=== PATIENT | male | born 1950 | race Caucasian/White ===

== ENCOUNTER 2018-12-13 15:00 | Inpatient (IN) | payer MEDICARE, OTHER ==
[2018-12-13 16:22] LABS: Hemoglobin 14.9 g/dL (14.0-18.0); Mean Corpuscular HGB CONC 33.1 g/dL (32.0-36.0); Mean Corpuscular Hemoglobin 29.9 pg (27.0-31.0); Mean Corpuscular Volume 90.3 fL (78.0-98.0); Mean Platelet Volume 9.6 fL (7.4-10.4); Platelet Count 214 thou/uL (130-400); RBC Distribution Width 12.6 % (11.5-14.5); Red Blood Cell (RBC) Count 4.99 mill/uL (4.70-6.10); White Blood Cell (WBC) Count 7.7 thou/uL (4.8-10.8)
[2018-12-13 16:39] LABS: Anion Gap 12 mmol/L (10-20); BUN (Urea Nitrogen) 18 mg/dL (8.4-25.7); Calc. Creatinine Clearance 0 mL/min (70-130); Calcium 9.6 mg/dL (7.8-10.44); Carbon Dioxide 26 mmol/L (23-31); Chloride 108 mmol/L (98-107); Estimated GFR-MDRD 78; Glucose 79 mg/dL (80-115); Potassium 4.5 mmol/L (3.5-5.1); Sodium 141 mmol/L (136-145)
[2018-12-14] MEDS ORDERED: Midazolam HCl 5 mg/5 ml Vial ONE (06:33)
[2018-12-14] MEDS ORDERED: Fentanyl 250 MCG/5 ML VIAL ONE (06:33)
[2018-12-14] MEDS ORDERED: Heparin 10,000 UNITS/1 ML VIAL 30,000 UNITS in Sodium Chloride 0.9% 1,000 ML FS SCH (06:45)
[2018-12-14] MEDS ORDERED: Phenylephrine HCL 10 MG/ML VIAL ONE (07:05)
--- NOTE | 2018-12-14 10:46 | OP ---
DATE OF PROCEDURE: 12/14/2018 PREOPERATIVE DIAGNOSIS: Coronary artery disease. PROCEDURES PERFORMED: Coronary artery bypass graft x2, large left internal mammary artery to a 1 mm left anterior descending and a saphenous vein graft, good quality to a 1.25 mm diagonal. Neither of these targets would be considered a reoperative candidate. PROFESSOR OF CHEMICAL ENGINEERING: Ulices Rodarte MD TRANSFUSION: None. DESCRIPTION OF PROCEDURE: After adequate anesthesia had been obtained, the patient was prepped and draped and Dr. Rodarte harvested a segment of left greater saphenous vein while I performed a median sternotomy. Left internal mammary artery was harvested, patient heparinized, and mammary divided distally and treated with intraluminal papaverine. It was passed posterior to the thymus gland through an incision in the pericardium. After traction sutures were placed in the pericardium. Aorta and right atrium were cannulated. Cardiopulmonary bypass begun. Vessels were inspected for grafting and the LAD was intramyocardial except for its distal third. Aorta was cross clamped and after a liter of cold blood cardioplegia was given, the diagonal was opened and saphenous vein anastomosed to this small vessel. Following completion of this, the LAD was opened and it had to be dilated slightly to admit the 1 mm probe. CARBONE to LAD anastomosis was then carefully performed. Following which, the mammary pedicle was secured to the myocardium. The cross-clamp removed. The partial occluding clamp was then placed and a single proximal anastomosis was performed and marked with a ring. Following this, the patient was weaned from cardiopulmonary bypass. Due to a resting bradycardia with PVCs preoperatively, a set of temporary atrial wires were placed. Following protamine administration, cannulas were removed and secured. Mediastinal drains x2 were placed, following which the sternum was reapproximated with #7 interrupted wire. The vancomycin paste, platelet rich blood and platelet poor plasma were used to close the sternum and subcutaneous tissues over these. The patient is to be taken to the ICU in guarded condition. Job ID: [id number]
[2018-12-14] MEDS ORDERED: Morphine 4 MG/ML VIAL ONE (11:00)
[2018-12-14] MEDS ORDERED: Nitroglycerin 50 MG/250 ML BOT 250 ML ONE (11:04)
[2018-12-14] MEDS ORDERED: Hetastarch 6% 500 ML 500 ML IVPB PRN (11:29)
[2018-12-14] MEDS ORDERED: DOPamine 400 MG/D5W 250 ML 250 ML IVPB PRN (11:29)
[2018-12-14] MEDS ORDERED: Acetaminophen 325 MG TAB PO PRN (11:29)
[2018-12-14] MEDS ORDERED: niCARdipine HCl 25 MG in Sodium Chloride 0.9% 250 ML 240 ML IVPB PRN (11:29)
[2018-12-14] MEDS ORDERED: Morphine 2 MG/ML SYRINGE SLOW IVP PRN (11:29)
[2018-12-14] MEDS ORDERED: Promethazine HCl 25 MG/ML VIAL IM PRN (11:29)
[2018-12-14] MEDS ORDERED: Bisacodyl 10 MG SUPP PR PRN (11:29)
[2018-12-14] MEDS ORDERED: Potassium Chloride 20 MEQ/100 ML PREMIX BAG IVPB PRN (11:29)
[2018-12-14] MEDS ORDERED: Mag-Al 1200 mg/1200 mg/30 ML UDCUP PO PRN (11:29)
[2018-12-14] MEDS ORDERED: HYDROcodone/Acetaminophen 5/325 mg Tablet PO PRN ×2 (11:29)
[2018-12-14] MEDS ORDERED: Post-Op Insulin Drip Protocol IVPB ONE (11:29)
[2018-12-14] MEDS ORDERED: Norepinephrine 8 MG/0.9% NS 250 ML IVPB PRN (11:29)
[2018-12-14] MEDS ORDERED: Nitroglycerin 50 MG/250 ML BOT 250 ML IVPB PRN (11:29)
[2018-12-14] MEDS ORDERED: Fentanyl 100 MCG/2 ML VIAL SLOW IVP PRN (11:29)
[2018-12-14] MEDS ORDERED: Bisacodyl 5 MG TAB PO PRN (11:29)
[2018-12-14] MEDS ORDERED: hydrALAZINE 20 MG/ML VIAL SLOW IVP PRN (11:29)
[2018-12-14] MEDS ORDERED: Guaifenesin DM 100-10/5 ML UDCUP PO PRN (11:29)
--- NOTE | 2018-12-14 11:34 | RAD ---
Chest one view HISTORY: Heart surgery. COMPARISON: 09/26/2018. FINDINGS: Cardiac silhouette is magnified by projection. Pulmonary vasculature is unremarkable. Media stinum is midline with postoperative changes and aortic calcification. Radiopaque drains overlie the midline. Tip of endotracheal catheter overlies the thoracic inlet. Tip of a right subclavian cent ral venous catheter overlies the right atrium. No evidence of pneumothorax. Atelectasis at the left base. library monitor leads overlie the chest. IMPRESSION: Postoperative changes mediastinum. Lines and tubes are as detailed above.
[2018-12-14 11:39] LABS: Hemoglobin 12.7 g/dL (14.0-18.0); Mean Corpuscular HGB CONC 34.1 g/dL (32.0-36.0); Mean Corpuscular Hemoglobin 30.5 pg (27.0-31.0); Mean Corpuscular Volume 89.5 fL (78.0-98.0); RBC Distribution Width 12.5 % (11.5-14.5); Red Blood Cell (RBC) Count 4.16 mill/uL (4.70-6.10); White Blood Cell (WBC) Count 13.2 thou/uL (4.8-10.8)
[2018-12-14 11:40] LABS: Actual Bicarbonate (HCO3a) 22.5 mEq/L (22-28); CO2 Tension 41.6 mmHg (35.0-45.0); Calcium, Ionized 1.15 mmol/L (1.12-1.30); Carboxyhemoglobin (COHb) 0.9 gm% (0.0-3.0); Hemoglobin (Hb) 14.5 g/dL (14.0-18.0); O2 Tension (PaO2) 106.4 mmHg (> 80.0); Potassium - ABG Lab 4.12 mmol/L (3.70-5.30); Puncture Site ALINE; pH, Arterial 7.35 (7.35-7.45)
[2018-12-14 11:41] LABS: #Basophils 0.1 thou/uL (0.0-0.2); #Eosinphils 0.2 thou/uL (0.0-0.7); #Lymphocytes 1.5 thou/uL (1.20-3.40); #Monocytes 0.8 thou/uL (0.11-0.59); #Neutrophils 10.7 thou/uL (1.40-6.50); %Basophils 0.5 % (0.0-1.0); %Eosinophils 1.5 % (0.0-10.0); %Lymphocytes 11.1 % (21.0-51.0); %Monocytes 5.9 % (0.0-10.0); %Neutrophils 81.1 % (42.0-75.0)
[2018-12-14] MEDS ORDERED: Dextrose 50% Abboject 50 ML SYRINGE SLOW IVP PRN (11:55)
[2018-12-14] MEDS ORDERED: Insulin Regular 300 UNITS/3 ML VIAL SC PRN (11:55)
[2018-12-14] MEDS ORDERED: Dextrose 5% in Water 1,000 ML IV PRN (11:55)
[2018-12-14] MEDS ORDERED: HUMULIN R 100 UNITS in Sodium Chloride 0.9% 100 ML IVPB SCH (11:55)
[2018-12-14] MEDS ORDERED: Magnesium 2 GM/50 ML 2 GM in Premix Bag 1 BAG IVPB SCH (12:00)
[2018-12-14] MEDS: Ketorolac Tromethamine 30 MG/ML VIAL IVP SCH ×2 (12:05→17:51)
[2018-12-14] MEDS: Sodium Chloride 0.9% 1,000 ML IV SCH ×2 (12:06→21:08)
[2018-12-14 12:16] LABS: Mean Platelet Volume 10.6 fL (7.4-10.4); Platelet Count 145 thou/uL (130-400)
[2018-12-14 12:17] LABS: Platelet Morphology Comment Appears Adequate
[2018-12-14 12:26] LABS: INR-International Normal Ratio 1.2; PTT 25.1 SEC (22.9-36.1)
[2018-12-14 13:17] LABS: Anion Gap 12 mmol/L (10-20); Calcium 8.3 mg/dL (7.8-10.44); Carbon Dioxide 21 mmol/L (23-31); Chloride 111 mmol/L (98-107); Glucose 157 mg/dL (80-115); Potassium 4.4 mmol/L (3.5-5.1); Sodium 140 mmol/L (136-145)
[2018-12-14 13:26] LABS: Actual Bicarbonate (HCO3a) 18.3 mEq/L (22-28); Base Excess (BEa) -6.5 mEq/L (-2.0 to +3.0); CO2 Tension 34.5 mmHg (35.0-45.0); Calcium, Ionized 1.16 mmol/L (1.12-1.30); Carboxyhemoglobin (COHb) 1.2 gm% (0.0-3.0); Hemoglobin (Hb) 14.6 g/dL (14.0-18.0); O2 Tension (PaO2) 98.7 mmHg (> 80.0); Potassium - ABG Lab 4.15 mmol/L (3.70-5.30); pH, Arterial 7.34 (7.35-7.45)
[2018-12-14] MEDS: Fentanyl 100 MCG/2 ML VIAL SLOW IVP PRN ×3 (13:38→19:36)
[2018-12-14 13:51] LABS: ALV-art Gradient 143.375 (0-20); Puncture Site ALINE
[2018-12-14 14:24] LABS: Calc. Creatinine Clearance 96 mL/min (70-130); Estimated GFR-MDRD Greater than 90
[2018-12-14 14:25] LABS: BUN (Urea Nitrogen) 16 mg/dL (8.4-25.7)
[2018-12-14] MEDS ORDERED: Cardioplegic Soln 1,000 ML BAG ONE (15:15)
[2018-12-14] MEDS ORDERED: Protamine Sulfate 250 MG/25 ML VIAL ONE (15:15)
[2018-12-14] MEDS ORDERED: PHENYLEPHRINE-NS 100 MCG/ML 10 ML SYRINGE ONE (15:15)
[2018-12-14] MEDS ORDERED: Mannitol 12.5 GM/50 ML ONE (15:15)
[2018-12-14] MEDS ORDERED: Thrombin 5000 UNITS/5 ML VIAL ONE (15:15)
[2018-12-14] MEDS ORDERED: Magnesium 5 GM/10 ML VIAL ONE (15:15)
[2018-12-14] MEDS ORDERED: PROPOFOL 200 MG/20 ML VIAL ONE (15:15)
[2018-12-14] MEDS ORDERED: Rocuronium Bromide 10 MG/ML (10ML VIAL) ONE (15:15)
[2018-12-14] MEDS ORDERED: ePHEDrine 50 MG/ML VIAL ONE (15:15)
[2018-12-14] MEDS ORDERED: Heparin 30,000 units/30 ml VIAL ONE (15:15)
[2018-12-14] MEDS ORDERED: Potassium Chloride 60 MEQ/30 ML VIAL ONE (15:15)
[2018-12-14] MEDS ORDERED: Papaverine 60 MG/2 ML VIAL ONE (15:15)
[2018-12-14] MEDS ORDERED: Heparin 5,000 UNITS/ML VIAL ONE (15:15)
[2018-12-14] MEDS ORDERED: Aminocaproic Acid 5 GM/20 ML VIAL ONE (15:15)
[2018-12-14] MEDS ORDERED: Calcium Chloride 1 GM/10 ML Abboject SYRINGE ONE (15:15)
[2018-12-14] MEDS ORDERED: Lidocaine 2% PF 100 mg/5 ml Syringe ONE (15:15)
[2018-12-14] MEDS ORDERED: Glycopyrrolate 0.2 MG/ML 5 ML SYRINGE ONE (15:15)
[2018-12-14] MEDS ORDERED: Sodium Bicarb 50 MEQ/50 ML VIAL ONE (15:15)
[2018-12-14] MEDS: CEFAZOLIN 2 GM in Premix Bag 1 BAG IVPB SCH (15:52)
[2018-12-14] MEDS: Ondansetron PF 4 MG/2 ML Vial IVP PRN ×2 (16:37→22:40)
[2018-12-14 16:58] LABS: Hemoglobin 13.5 g/dL (14.0-18.0)
[2018-12-14 17:14] LABS: Potassium 4.1 mmol/L (3.5-5.1)
[2018-12-14] MEDS ORDERED: Prevnar 13-Val Conj/PF 0.5 ML SYRINGE IM ONE (21:00)
[2018-12-14] MEDS: Famotidine/PF 20 mg/2ml Vial SLOW IVP SCH (21:05)
[2018-12-14] MEDS: Atorvastatin Calcium 10 MG TAB PO SCH (21:05)
[2018-12-15] MEDS: Ketorolac Tromethamine 30 MG/ML VIAL IVP SCH ×4 (00:07→17:36)
[2018-12-15] MEDS: CEFAZOLIN 2 GM in Premix Bag 1 BAG IVPB SCH ×2 (00:08→09:28)
[2018-12-15] MEDS: Fentanyl 100 MCG/2 ML VIAL SLOW IVP PRN (01:52)
[2018-12-15 05:08] LABS: #Monocytes 1.5 thou/uL (0.11-0.59); #Neutrophils 7.5 thou/uL (1.40-6.50); %Basophils 0.2 % (0.0-1.0); %Eosinophils 0.1 % (0.0-10.0); %Monocytes 13.2 % (0.0-10.0); %Neutrophils 68.5 % (42.0-75.0); Mean Corpuscular HGB CONC 32.3 g/dL (32.0-36.0); Mean Corpuscular Hemoglobin 29.2 pg (27.0-31.0); Mean Corpuscular Volume 90.5 fL (78.0-98.0); Mean Platelet Volume 9.6 fL (7.4-10.4); Platelet Count 152 thou/uL (130-400); RBC Distribution Width 12.7 % (11.5-14.5); Red Blood Cell (RBC) Count 4.09 mill/uL (4.70-6.10)
[2018-12-15 05:34] LABS: Anion Gap 9 mmol/L (10-20); BUN (Urea Nitrogen) 19 mg/dL (8.4-25.7); Calc. Creatinine Clearance 101 mL/min (70-130); Calcium 7.9 mg/dL (7.8-10.44); Carbon Dioxide 22 mmol/L (23-31); Chloride 111 mmol/L (98-107); Estimated GFR-MDRD Greater than 90; Glucose 103 mg/dL (80-115); Sodium 138 mmol/L (136-145)
--- NOTE | 2018-12-15 06:28 | RAD ---
XR Chest 1 View Portable HISTORY: Postop open heart surgery. COMPARISON: Prior day's exam. FINDINGS: There is been interval removal of endotracheal tube. Right subclavian line remains in posit ion. Heart size is enlarged. Subsegmental atelectatic changes are seen in the lung bases. IMPRESSION: Interval removal of endotracheal tube. Otherwise essentially stable chest.
[2018-12-15] MEDS ORDERED: Zolpidem Tartrate 5 MG TAB PO PRN (06:29)
[2018-12-15] MEDS: HYDROcodone/Acetaminophen 10/325 mg Tablet PO PRN ×4 (07:29→19:53)
[2018-12-15] MEDS: Famotidine/PF 20 mg/2ml Vial SLOW IVP SCH ×2 (07:31→19:54)
[2018-12-15] MEDS ORDERED: Polyethylene Glycol 3350 17 GM Packet PO SCH (09:00)
[2018-12-15] MEDS ORDERED: Aspirin 325 MG TAB PO SCH (09:00)
[2018-12-15] MEDS: Clopidogrel Bisulfate 75 MG TAB PO SCH (09:19)
--- NOTE | 2018-12-15 14:00 | CON ---
DATE OF CONSULTATION: 12/15/2018 SERVICE: Pulmonary Medicine. REASON FOR CONSULTATION: ICU patient. HISTORY OF PRESENT ILLNESS: The patient is a 68-year-old white male with past medical history significant for coronary artery disease. He underwent cardiac catheterization, which demonstrated surgical disease. He is postop day number 1 from an elective 2-vessel coronary artery bypass graft. He denies any current fevers, chills, cough, sputum production. He has some appropriate chest discomfort. He is not having any nausea or vomiting. He ate a little bit of food this morning and it went down okay. 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 He is passing gas. Otherwise, he is responding appropriately to interventions and progressing as expected. PAST MEDICAL HISTORY: 1. Hypertension. 2. Dyslipidemia. 3. Coronary artery disease. 4. Diverticulosis. PAST SURGICAL HISTORY: 1. Herniorrhaphy. 2. Vasectomy. 3. Coronary artery bypass graft surgery. 4. Bilateral cataract surgery. 5. Transposition of ulnar/radial nerve. FAMILY HISTORY: Noncontributory. SOCIAL HISTORY: Negative for alcohol, tobacco, or illicit drug use. ALLERGIES: NO KNOWN DRUG ALLERGIES. MEDICATIONS: List of the patient's inpatient medications were reviewed. No specific updates were made at this time. REVIEW OF SYSTEMS: General; head eyes, ears, nose, and throat; cardiovascular, respiratory, GI, , musculoskeletal, neurologic, and skin are negative, except as mentioned in the HPI. PHYSICAL EXAMINATION: VITAL SIGNS: Afebrile, pulse 74, blood pressure 130/75, respirations 26, saturation 96% on room air, blood pressure 130/75. HEENT: Normocephalic and atraumatic. Sclerae white. Conjunctivae pink. Oral mucosa is moist without lesions. LUNGS: Decent air entry. There is no prolonged expiratory phase, wheezing, or crackles present. HEART: Normal rate and regular. ABDOMEN: Soft, nontender, nondistended. Bowel sounds are positive. MUSCULOSKELETAL: No cyanosis or clubbing. No pitting in the bilateral lower extremities. NEUROLOGIC: Grossly nonfocal. LABORATORY DATA: WBC 11.0 and downtrending, hemoglobin 12.0, platelets 152,000 and stable. INR 1.2. PH of 7.34, pCO2 of 35, pO2 of 98% on 40% FiO2 and PEEP of 5 at that time. Basic metabolic profile is essentially unremarkable. IMAGING STUDIES: Chest x-ray demonstrates interval extubation. Otherwise, a stable chest is present. Right subclavian central line is in good position. No infiltrates or effusions are identified. ASSESSMENT: 1. Acute hypoxic respiratory failure, resolved. 2. Coronary artery disease, status post coronary artery bypass graft. 3. Hyperthyroidism. DISCUSSION AND PLAN: I will check the TSH, a free T4 level tomorrow morning. Pulmonary/Critical Care will continue to follow along while the patient remains in-house for the time being. We will continue our mobilization efforts. 70 minutes have been devoted to this patient in various activities. I personally reviewed all imaging studies and laboratory data noted within this document. For fifty percent of this time, I was interacting with the patient at the bedside or coordinating care with the care team. For the remainder of the time I was immediately available to the patient in the hospital unit. Job ID: [id number] MTDD
[2018-12-15] MEDS: Rosuvastatin 20 MG TAB PO SCH (19:54)
[2018-12-15] MEDS: Atorvastatin Calcium 10 MG TAB PO SCH (20:53)
[2018-12-15] MEDS ORDERED: Methimazole 5 MG TAB PO SCH (21:00)
[2018-12-16] MEDS: Ketorolac Tromethamine 30 MG/ML VIAL IVP SCH ×2 (00:03→06:13)
[2018-12-16 04:44] LABS: #Basophils 0.1 thou/uL (0.0-0.2); #Eosinphils 0.2 thou/uL (0.0-0.7); #Lymphocytes 2.4 thou/uL (1.20-3.40); #Monocytes 1.7 thou/uL (0.11-0.59); #Neutrophils 6.9 thou/uL (1.40-6.50); %Basophils 0.7 % (0.0-1.0); %Eosinophils 1.8 % (0.0-10.0); %Lymphocytes 21.5 % (21.0-51.0); %Monocytes 14.7 % (0.0-10.0); %Neutrophils 61.2 % (42.0-75.0); Hemoglobin 11.9 g/dL (14.0-18.0); Mean Corpuscular HGB CONC 33.6 g/dL (32.0-36.0); Mean Corpuscular Volume 92.5 fL (78.0-98.0); Mean Platelet Volume 10.2 fL (7.4-10.4); Platelet Count 145 thou/uL (130-400); RBC Distribution Width 12.8 % (11.5-14.5); Red Blood Cell (RBC) Count 3.84 mill/uL (4.70-6.10); White Blood Cell (WBC) Count 11.2 thou/uL (4.8-10.8)
[2018-12-16 05:05] LABS: Anion Gap 8 mmol/L (10-20); BUN (Urea Nitrogen) 19 mg/dL (8.4-25.7); Calc. Creatinine Clearance 106 mL/min (70-130); Calcium 8.5 mg/dL (7.8-10.44); Carbon Dioxide 25 mmol/L (23-31); Chloride 106 mmol/L (98-107); Estimated GFR-MDRD Greater than 90; Glucose 95 mg/dL (80-115); Potassium 3.9 mmol/L (3.5-5.1); Sodium 135 mmol/L (136-145)
[2018-12-16] MEDS: HYDROcodone/Acetaminophen 10/325 mg Tablet PO PRN ×2 (05:06→05:41)
[2018-12-16 05:23] LABS: Free T4 (Free Thyroxine) 1.13 ng/dL (0.70-1.48); Thyroid Stimulating Hormone 0.0121 uIU/mL (0.35-4.94)
[2018-12-16 06:23] VITALS: BMI 26.5
[2018-12-16] MEDS ORDERED: Acetaminophen 325 MG TAB PO PRN (07:25)
[2018-12-16] MEDS ORDERED: Guaifenesin DM 100-10/5 ML UDCUP PO PRN (07:25)
[2018-12-16] MEDS ORDERED: Fentanyl 100 MCG/2 ML VIAL SLOW IVP PRN (07:25)
[2018-12-16] MEDS ORDERED: Zolpidem Tartrate 5 MG TAB PO PRN (07:25)
[2018-12-16] MEDS ORDERED: Ondansetron PF 4 MG/2 ML Vial IVP PRN (07:25)
[2018-12-16] MEDS ORDERED: Nitroglycerin 0.4 MG TAB (25 Tab Bottle) SL PRN (07:25)
[2018-12-16] MEDS ORDERED: Mag-Al 1200 mg/1200 mg/30 ML UDCUP PO PRN (07:25)
[2018-12-16] MEDS ORDERED: Bisacodyl 10 MG SUPP PR PRN (07:25)
[2018-12-16] MEDS ORDERED: Mineral Oil ENEMA PR PRN (07:25)
--- NOTE | 2018-12-16 07:55 | RAD ---
Portable chest: HISTORY: CCU follow-up. Post CABG COMPARISON: 12/15/2018 FINDINGS:Mild cardiomegaly postop sternotomy wires. Lung chairez are clear. Central line is unchanged. There are small effusions and mild bibasilar atelectasis. IMPRESSION: No acute finding
[2018-12-16] MEDS ORDERED: Potassium Chloride 10 MEQ TAB PO SCH (08:00)
[2018-12-16] MEDS: Aspirin 325 mg Enteric Coated Tablet PO SCH (08:19)
[2018-12-16] MEDS: Clopidogrel Bisulfate 75 MG TAB PO SCH (08:19)
[2018-12-16] MEDS: Famotidine 20 MG TAB PO SCH ×2 (08:20→20:20)
[2018-12-16] MEDS: Methimazole 5 MG TAB PO SCH (08:20)
[2018-12-16] MEDS: Polyethylene Glycol 3350 17 GM Packet PO SCH (08:21)
--- NOTE | 2018-12-16 08:39 | PRG ---
DATE OF SERVICE: 12/16/2018 SERVICE: Pulmonary Medicine. INTERVAL HISTORY: The patient is doing really well from respiratory standpoint. He is breathing comfortably. He denies any current chest pain, fevers, or chills. He got his chest tubes out this morning. Since then, he has had no difficulty with his breathing or discomfort in his chest. He is working on mobilization. There were no events overnight. No fevers. PHYSICAL EXAMINATION: VITAL SIGNS: Afebrile, pulse 89, blood pressure 123/65, respirations 10, saturation 97% on 1 L nasal cannula. GENERAL: The patient is awake and alert, in no apparent distress. LUNGS: Decent air entry. There is no prolonged expiratory phase or wheezing present. Minimal dependent crackles are noted. HEART: Normal rate and regular. ABDOMEN: Soft, nontender, nondistended. Bowel sounds are positive. MUSCULOSKELETAL: No cyanosis or clubbing. No pitting in the bilateral lower extremities. NEUROLOGIC: Grossly nonfocal. LABORATORY DATA: Hemoglobin 11.9, WBC 11.2, platelets 145,000. INR 1.2. Basic metabolic profile is unremarkable and his creatinine is 0.81. TSH is suppressed at 0.01, free T4 falls within the normal limits of 1.13. IMAGING DATA: Chest x-ray demonstrates small left-sided pleural effusion. Small lung volumes are present. There is a right subclavian central venous catheter that terminates in perfect position. Interstitial markings are accentuated by low lung volumes. There is likely a rim of atelectasis along the right base. ASSESSMENT: 1. Acute hypoxic respiratory failure, resolving. 2. Atelectasis at the right base. 3. Coronary artery disease, status post coronary artery bypass graft, postoperative day 2. 4. Hyperthyroidism. DISCUSSION AND PLAN: The patient is stable for transition out of the ICU to the floor. We will continue his home thyroid suppressing medications. At this point, The patient has no further requirements for inpatient Pulmonary or Critical Care opinion, and I will sign off. Please call with additional questions or concerns through time. Job ID: [id number]
[2018-12-16] MEDS ORDERED: Furosemide 40 MG TAB PO SCH (09:00)
[2018-12-16] MEDS: HYDROcodone/Acetaminophen 5/325 mg Tablet PO PRN ×2 (15:18→20:24)
[2018-12-16] MEDS: Rosuvastatin 20 MG TAB PO SCH (20:20)
[2018-12-17] MEDS: HYDROcodone/Acetaminophen 5/325 mg Tablet PO PRN ×4 (03:27→23:36)
[2018-12-17] MEDS: Aspirin 325 mg Enteric Coated Tablet PO SCH (08:03)
[2018-12-17] MEDS: Famotidine 20 MG TAB PO SCH ×2 (08:03→20:17)
[2018-12-17] MEDS: Methimazole 5 MG TAB PO SCH (08:04)
[2018-12-17] MEDS: Clopidogrel Bisulfate 75 MG TAB PO SCH (08:04)
[2018-12-17] MEDS: Polyethylene Glycol 3350 17 GM Packet PO SCH (08:04)
--- NOTE | 2018-12-17 10:26 | PRG ---
DATE OF SERVICE: 12/17/2018 SERVICE: Pulmonary Medicine. INTERVAL HISTORY: The patient is doing outstanding from respiratory standpoint. He is breathing comfortably. He just simply waiting transition to the telemetry unit. Otherwise, there has been no interval change to his condition. He remains in sinus rhythm. He is not having any chest discomfort or shortness of breath. His appetite is improving. PHYSICAL EXAMINATION: VITAL SIGNS: Afebrile, pulse 86, blood pressure 115/82, respirations 17, and saturation 96% on room air. GENERAL: The patient is awake and alert, in no apparent distress. LUNGS: Decent air entry. Minimal dependent crackles are noted. HEART: Normal rate and regular. ABDOMEN: Soft, nontender, and nondistended. Bowel sounds are positive. MUSCULOSKELETAL: No cyanosis or clubbing. There is trace pitting in the bilateral lower extremities. NEUROLOGIC: Grossly nonfocal. IMAGING STUDIES: Chest x-ray demonstrates no acute findings. Central line is in good position. Minimal effusions are present. ASSESSMENT: 1. Acute hypoxic respiratory failure, resolved. 2. Atelectasis at the right base. 3. Coronary artery disease, status post coronary artery bypass graft, postop day #3. 4. Hyperthyroidism, on appropriate suppression medication. DISCUSSION AND PLAN: The patient remains stable for transition out of the ICU to the telemetry unit. When he arrives on the floor, he will have no further requirements for inpatient Pulmonary or Critical Care opinion, and I will sign off. Please call with additional questions or concerns through time. Job ID: [id number]
[2018-12-17] MEDS: Rosuvastatin 20 MG TAB PO SCH (20:17)
[2018-12-18] MEDS: HYDROcodone/Acetaminophen 5/325 mg Tablet PO PRN ×4 (03:56→20:20)
[2018-12-18] MEDS: Polyethylene Glycol 3350 17 GM Packet PO SCH (08:17)
[2018-12-18] MEDS: Clopidogrel Bisulfate 75 MG TAB PO SCH (08:17)
[2018-12-18] MEDS: Aspirin 325 mg Enteric Coated Tablet PO SCH (08:17)
[2018-12-18] MEDS: Famotidine 20 MG TAB PO SCH ×2 (08:17→20:19)
[2018-12-18] MEDS: Methimazole 5 MG TAB PO SCH (09:00)
[2018-12-18] MEDS: Bisacodyl 5 MG TAB PO PRN (09:00)
[2018-12-18] MEDS ORDERED: cloNIDine 0.1 MG TAB PO PRN (19:51)
[2018-12-18] MEDS: Rosuvastatin 20 MG TAB PO SCH (20:19)
[2018-12-19] MEDS: HYDROcodone/Acetaminophen 5/325 mg Tablet PO PRN ×3 (08:16→22:18)
[2018-12-19] MEDS: Aspirin 325 mg Enteric Coated Tablet PO SCH (08:16)
[2018-12-19] MEDS: Famotidine 20 MG TAB PO SCH ×2 (08:17→22:10)
[2018-12-19] MEDS: Clopidogrel Bisulfate 75 MG TAB PO SCH (08:17)
[2018-12-19] MEDS: Polyethylene Glycol 3350 17 GM Packet PO SCH (08:17)
[2018-12-19] MEDS: Methimazole 5 MG TAB PO SCH (08:18)
[2018-12-19] MEDS: Bisacodyl 5 MG TAB PO PRN (11:49)
[2018-12-19] MEDS: Lisinopril 5 MG TAB PO SCH (22:09)
[2018-12-19] MEDS: Rosuvastatin 20 MG TAB PO SCH (22:09)
[2018-12-20] MEDS: Aspirin 325 mg Enteric Coated Tablet PO SCH (10:19)
[2018-12-20] MEDS: Clopidogrel Bisulfate 75 MG TAB PO SCH (10:19)
[2018-12-20] MEDS: Polyethylene Glycol 3350 17 GM Packet PO SCH (10:20)
[2018-12-20] MEDS: HYDROcodone/Acetaminophen 5/325 mg Tablet PO PRN ×2 (10:20→16:17)
[2018-12-20] MEDS: Lisinopril 5 MG TAB PO SCH (10:20)
[2018-12-20] MEDS: Famotidine 20 MG TAB PO SCH (10:22)
[2018-12-20] MEDS: Methimazole 5 MG TAB PO SCH (11:19)
[2018-12-20 14:09] LABS: Actual Bicarbonate (HCO3a) 22.1 mEq/L (22-28); Analyzer IN Cardio OR; Base Excess (BEa) -2.5 mEq/L (-2.0 to +3.0); CO2 Tension 37.7 mmHg (35.0-45.0); Calcium, Ionized 1.14 mmol/L (1.12-1.30); Carboxyhemoglobin (COHb) 0.1 gm% (0.0-3.0); Hemoglobin (Hb) 13.2 g/dL (14.0-18.0); O2 Tension (PaO2) 114.5 mmHg (> 80.0); Potassium - ABG Lab 4.25 mmol/L (3.70-5.30); pH, Arterial 7.39 (7.35-7.45)
[2018-12-20 14:09] LABS: Actual Bicarbonate (HCO3a) 22.6 mEq/L (22-28); Analyzer IN Cardio OR; Base Excess (BEa) -2.1 mEq/L (-2.0 to +3.0); CO2 Tension 38.6 mmHg (35.0-45.0); Calcium, Ionized 1.17 mmol/L (1.12-1.30); Carboxyhemoglobin (COHb) 0.3 gm% (0.0-3.0); Hemoglobin (Hb) 13.8 g/dL (14.0-18.0); O2 Tension (PaO2) 109.1 mmHg (> 80.0); Potassium - ABG Lab 4.04 mmol/L (3.70-5.30); pH, Arterial 7.39 (7.35-7.45)
[2018-12-20 14:10] LABS: Actual Bicarbonate (HCO3v) 28 mEq/L (22-28); Analyzer IN Cardio OR; Calcium, Ionized 1.03 mmol/L (1.16-1.32); Chloride (ABG LAB) 106 mmol/L (98-106); Hemoglobin (Hb) 10.8 g/dL (12.6-17.4); Potassium - ABG Lab 4.97 mmol/L (3.70-5.30); Sodium 139.1 mmol/L (133-146); pH (venous) 7.42 (7.32-7.43)
[2018-12-20 14:10] LABS: Actual Bicarbonate (HCO3a) 26.2 mEq/L (22-28); Analyzer IN Cardio OR; Base Excess (BEa) 2.1 mEq/L (-2.0 to +3.0); CO2 Tension 38.7 mmHg (35.0-45.0); Calcium, Ionized 1.01 mmol/L (1.12-1.30); Carboxyhemoglobin (COHb) 0.3 gm% (0.0-3.0); Hemoglobin (Hb) 10.8 g/dL (14.0-18.0); O2 Tension (PaO2) 484.4 mmHg (> 80.0); Potassium - ABG Lab 5.43 mmol/L (3.70-5.30); pH, Arterial 7.45 (7.35-7.45)
[2018-12-20 14:11] LABS: Actual Bicarbonate (HCO3a) 23.4 mEq/L (22-28); Analyzer IN Cardio OR; Base Excess (BEa) -1.7 mEq/L (-2.0 to +3.0); CO2 Tension 41.2 mmHg (35.0-45.0); Calcium, Ionized 1.05 mmol/L (1.12-1.30); Carboxyhemoglobin (COHb) 0.3 gm% (0.0-3.0); Hemoglobin (Hb) 10.7 g/dL (14.0-18.0); O2 Tension (PaO2) 351.5 mmHg (> 80.0); Potassium - ABG Lab 5.17 mmol/L (3.70-5.30); pH, Arterial 7.37 (7.35-7.45)
[2018-12-20 14:11] LABS: Actual Bicarbonate (HCO3a) 22.9 mEq/L (22-28); Analyzer IN Cardio OR; Base Excess (BEa) -0.9 mEq/L (-2.0 to +3.0); CO2 Tension 35.2 mmHg (35.0-45.0); Calcium, Ionized 1.22 mmol/L (1.12-1.30); Carboxyhemoglobin (COHb) 0.3 gm% (0.0-3.0); Hemoglobin (Hb) 11.3 g/dL (14.0-18.0); O2 Tension (PaO2) 160.7 mmHg (> 80.0); Potassium - ABG Lab 4.63 mmol/L (3.70-5.30); pH, Arterial 7.43 (7.35-7.45)
[2018-12-20 14:16] LABS: Puncture Site ALINE
[2018-12-20 14:17] LABS: Puncture Site ALINE
[2018-12-20 14:17] LABS: Puncture Site ALINE
[2018-12-20 14:18] LABS: Puncture Site ALINE
[2018-12-20 14:18] LABS: Puncture Site ALINE
--- NOTE | 2018-12-20 17:24 | EKG ---
Test Reason : POST CABG Blood Pressure : / mmHG Vent. Rate : 072 BPM Atrial Rate : 072 BPM P-R Int : 150 ms QRS Dur : 082 ms QT Int : 416 ms P-R-T Axes : 058 037 034 degrees QTc Int : 455 ms Normal sinus rhythm Normal ECG Confirmed by JAUN HESTER ([id number]) on 12/20/2018 5:24:23 PM Referred By: MAGI Confirmed By:JAUN HESTER
[2018-12-20 20:51] VITALS: BP 149/82; TEMP 97.9
[2018-12-20] MEDS ORDERED: Atorvastatin Calcium 20 MG TAB PO SCH (21:00)
--- NOTE | 2018-12-21 04:05 | DIS ---
DATE OF ADMISSION: 12/14/2018 DATE OF DISCHARGE: 12/20/2018 HOSPITAL COURSE: The patient was admitted on 12/14, where he underwent coronary artery bypass grafting to the LAD diagonal. Of note, the LAD was quite small with a 1 mm probe actually dilating the vessel slightly at the site of anastomosis. Postoperative course was relatively unremarkable and the patient was ready for discharge on 12/19; however, due to some mild hypertension, he was kept in the hospital another day and discharged home on 12/20. He will be discharged home on his admitting medicine of metoprolol 25 daily, long-acting. Continue his hyperthyroid methimazole. He will have prescriptions for Lipitor 20 at bedtime, Plavix 75 a day, and lisinopril 10 mg a day. Discharge and followup instructions have been given and a prescription for [place] has been sent to his pharmacy. Job ID: [id number]
== END 2018-12-20 16:44 | disposition home or self-care (01) | DRG 235 ==
LOC: SURG A 12-14 05:55 → CCU 12-14 10:55 → 2NO 12-17 09:32
PROVIDERS: ADMIT Thoracic Surgery (Cardiothoracic Vascular Surgery); ATTEND Thoracic Surgery (Cardiothoracic Vascular Surgery)
PROC: 02100Z9 Bypass Coronary Artery, One Artery from Left Internal Mammary, Open Approach (ICD-10-PCS; principal; 2018-12-14)
PROC: 021009W Bypass Coronary Artery, One Artery from Aorta with Autologous Venous Tissue, Open Approach (ICD-10-PCS; 2018-12-14)
PROC: 06BQ4ZZ Excision of Left Saphenous Vein, Percutaneous Endoscopic Approach (ICD-10-PCS; 2018-12-14)
PROC: 5A1221Z Performance of Cardiac Output, Continuous (ICD-10-PCS; 2018-12-14)
DX: I25.10 Atherosclerotic heart disease of native coronary artery without angina pectoris (principal); J96.01 Acute respiratory failure with hypoxia; J98.11 Atelectasis; I10 Essential (primary) hypertension; E05.90 Thyrotoxicosis, unspecified without thyrotoxic crisis or storm; E78.5 Hyperlipidemia, unspecified; Z98.42 Cataract extraction status, left eye; Z98.41 Cataract extraction status, right eye; Z98.52 Vasectomy status
CPT/HCPCS: 36415; 36416; 36430; 71045; 80048; 82805; 84439; 84443; 85025; 85027; 86850; 86900; 86901; 93005; 93010; 93798; 94002; 94150; J0360; J0690; J1642; J1644; J1815; J1885; J2001; J2150; J2250; J2270; J2370; J2405; J2440; J2704; J2720; J3010; J3370; J3475; J3480; J3490; J7050; P9045; S0017; S0028